=== PATIENT | male | born 1960 | race African-American/Black ===

== ENCOUNTER 2025-04-22 22:15 | Emergency (ER) | payer SELFPAY ==
[~2025-04-22] VITALS: Ht 165.1 cm; Wt 68.0 kg
[2025-04-22 22:17] VITALS: O2SAT 96
[2025-04-23 00:35] VITALS: BP 159/86; PULSE 75; RESP 16; TEMP 36.8; O2SAT 99
== END 2025-04-23 00:40 | disposition home or self-care (01) ==
LOC: ER 22:15
DX: F10.129 Alcohol abuse with intoxication, unspecified (principal); H10.219 Acute toxic conjunctivitis, unspecified eye; I10 Essential (primary) hypertension; Y90.9 Presence of alcohol in blood, level not specified
CPT/HCPCS: 99283